=== PATIENT | female | born 1960 | race Caucasian/White ===

== ENCOUNTER → 2018-03-09 | Outpatient (CLI) | payer OTHER ==
[~2018-03-09] MED LIST: IBUP-1060 PO; LIDOCAINE 2%/EPI 1:100,000 20 ML VIAL. IJ ONE; LIDOCAINE WITH 8.4% SOD BICARB 3 ML DISP.SYRIN. INJ ONE
--- NOTE | 2018-03-10 18:07 | PATHOLOGY ---
[facility] Accession Number: [id number] . 01 Material submitted: . LEFT BREAST NODULE AND CALCIFICATIONS . 01 Clinical history: . Calcifications . 02 Diagnosis: Breast tissue, left breast needle biopsies: - Fibrocystic changes, focal, with components of stromal fibrosis and mild duct ectasia. - Few calcifications identified. (JPM:haley; 03/10/2018) QMS/03/10/2018 . 02 Comment: There is no atypia or evidence of malignancy. . 02 Electronically signed: . William Mas MD, Pathologist NPI- [id number] . 01 Gross description: . The specimen is received in formalin, labeled "Livier Ratliff, left breast calcifications" and consists of an orange cassette containing multiple needle cores of yellow-zamudio tissue measuring 3.2 x 2.6 x 0.5 cm which are transferred to cassette A1. Also received are multiple additional needle cores of yellow-zamudoi tissue measuring 4.8 x 2.3 x 0.5 cm in aggregate which are entirely submitted in A2-A3. The cold ischemic time is 16 minutes and the total formalin fixation time is greater than 6 hours but less than 72 hours. (SDY; 03/09/2018) SYU/SYU . 02 Pathologist provided ICD-10: N60.12, N60.32, N60.42 . 02 CPT . 844295 Specimen Comment: A courtesy copy of this report has been sent to Specimen Comment: [phone]. Specimen Comment: Report sent to Performed at: [address], [place], [place] [id number] MD Jv Hays MD Phone: [phone] Performed at: 02 [facility] [address] [place], [place] [id number] MD William Mas MD Phone: [phone]
--- NOTE | 2018-03-11 09:54 | RAD ---
Stereotactic left breast biopsy, 03/09/2018: History: Suspicious breast lesion Previous studies demonstrated an ill-defined opacity containing microcalcifications in the upper outer left breast. Under local anesthesia, aseptic conditions and utilizing a superior approach the Foradian vacuum-assisted biopsy instrument was passed into this region under stereotactic guidance. Multiple 9 gauge vacuum-assisted core samples were obtained. Specimen mammography demonstrated the targeted microcalcifications within the specimens. A biopsy marker was deposited at the biopsy site. The biopsy instrument was then removed and hemostasis obtained. Two-view postprocedural mammograms were then obtained to document position of the biopsy marker. There is a small amount of post procedural hemorrhage at the biopsy site. The patient tolerated the procedure well and left the department in good condition. The subsequent pathology report indicated the presence of fibrocystic change with calcifications. There is no evidence of malignancy. This is considered to be a concordant finding.
== END | disposition home or self-care (01) ==
LOC: MAMMO 07:59
PROVIDERS: ATTEND Radiology Diagnostic Radiology
DX: N60.32 Fibrosclerosis of left breast (principal); N60.42 Mammary duct ectasia of left breast
CPT/HCPCS: 19081; 77065; 88305; C1713; J3490; 19085; 77022